=== PATIENT | female | born 1950 | race Hispanic/Latino ===

== ENCOUNTER → 2020-02-06 | Outpatient (CLI) | payer MEDICARE ==
[~2020-02-06] MED LIST: AEC81 PO; AMLO-258 PO; ATOR10TA69 PO; FURO20TA4 PO; IOHEXOL-350 75 ML VIAL IV ONE; LABE300T2 PO; LOSA100T58 PO; METF-444 PO; TERA2CAP4 PO
== END | disposition home or self-care (01) ==
LOC: RAH 09:29
PROVIDERS: ATTEND Internal Medicine Critical Care Medicine
DX: I31.3 Pericardial effusion (noninflammatory) (principal); J90 Pleural effusion, not elsewhere classified; M47.814 Spondylosis without myelopathy or radiculopathy, thoracic region
CPT/HCPCS: 71275; Q9967